=== PATIENT | female | born 1955 | race Caucasian/White ===

== ENCOUNTER 2019-09-14 13:30 | Day surgery (SDC) | payer MEDICARE ==
[~2019-09-14] VITALS: Ht 162.6 cm; Wt 89.0 kg
[~2019-09-14 13:30] MED LIST: MORP15ER PO; OXYC10TA19 PO
[2019-09-14] MEDS ORDERED: BUPR75 (14:22)
== END 2019-09-14 15:20 | disposition home or self-care (01) ==
LOC: ORSCSDS 13:30
PROVIDERS: Internal Medicine Gastroenterology
PROC: 0DJD8ZZ Inspection of Lower Intestinal Tract, Via Natural or Artificial Opening Endoscopic (ICD-10-PCS; principal; 2019-09-14 14:45)
DX: Z12.11 Encounter for screening for malignant neoplasm of colon (principal); D12.5 Benign neoplasm of sigmoid colon; K64.8 Other hemorrhoids; K57.30 Diverticulosis of large intestine without perforation or abscess without bleeding; J44.9 Chronic obstructive pulmonary disease, unspecified; E03.9 Hypothyroidism, unspecified; E66.9 Obesity, unspecified; Z87.891 Personal history of nicotine dependence; Z68.34 Body mass index [BMI] 34.0-34.9, adult; Z79.899 Other long term (current) drug therapy
CPT/HCPCS: 88305; J2405; J2704; J7120

== ENCOUNTER → 2021-05-31 | Outpatient (CLI) | payer MEDICARE ==
[~2021-05-31] MED LIST changes: +BUPR75
== END | disposition home or self-care (01) ==
LOC: LAB 08:32 → LAB SHORT 08:32
DX: D22.72 Melanocytic nevi of left lower limb, including hip (principal)
CPT/HCPCS: 88305

== ENCOUNTER 2021-12-16 17:04 | Emergency (ER) | payer BC ==
[~2021-12-16] VITALS: Ht 162.6 cm; Wt 90.7 kg
[2021-12-16] MEDS ORDERED: PRED20 PO (20:16)
[2021-12-16] MEDS ORDERED: EPIPEN0.3 MG/0.1 IM (20:16)
== END 2021-12-16 20:30 | disposition home or self-care (01) ==
LOC: ER 17:04
DX: T78.2XXA Anaphylactic shock, unspecified, initial encounter (principal); Z87.891 Personal history of nicotine dependence; Z79.899 Other long term (current) drug therapy; Z88.8 Allergy status to other drugs, medicaments and biological substances; Z91.048 Other nonmedicinal substance allergy status
CPT/HCPCS: 93005; 93010; 94640; 96374; 99285-25; A9270; J2765